=== PATIENT | female | born 1980 | race Caucasian/White ===

== ENCOUNTER 2021-11-12 14:43 | Emergency (ER) | payer OTHER ==
[~2021-11-12] VITALS: Ht 152.4 cm; Wt 53.1 kg
[~2021-11-12 14:43] MED LIST: SYNTHROID50 MCG
[2021-11-12] MEDS ORDERED: LEVOXYL75 MCG PO (14:59)
== END 2021-11-12 20:03 | disposition home or self-care (01) ==
LOC: ER 14:43
DX: A49.3 Mycoplasma infection, unspecified site (principal)